=== PATIENT | male | born 2000 | race Caucasian/White ===

== ENCOUNTER 2022-06-28 23:57 | Emergency (ER) | payer OTHER, SELFPAY ==
[2022-06-28 23:58] VITALS: BP 141/88; PULSE 85; RESP 14; TEMP 36.2; O2SAT 98; BMI 20.3
[2022-06-29 00:02] VITALS: O2SAT 99
--- NOTE | 2022-06-29 00:22 | EX.ED.DYSGE1 ---
HPI History of Present Illness Chief Complaint: Cold Sx Detail of Chief Complaint: Cough x5 or 6 days Informant: patient Narrative Narrative: Patient presents emergency department for cough and cold symptoms that started 5 or 6 days ago. Patient states initially had a fever over last weekend but that has gone away. Patient continues to cough and bringing up some phlegm. Patient states he had COVID in the summer and then had a residual cough for which she got albuterol inhaler and steroids. Patient did take a COVID test when the symptoms for started 5 days ago and was negative. Patient has been away at school and has been around individuals with upper respiratory infections. Patient denies chest pain. PFSH PFSH Home Medications benzonatate 200 mg capsule 200 mg PO TID PRN cough #20 caps 06/29/22 [Rx Last Taken Unknown] prednisone 20 mg tablet 20 mg PO BID #10 tabs 06/29/22 [Rx Last Taken Unknown] Allergy/AdvReac Type Severity Reaction Status Date / Time ibuprofen [From Motrin] Allergy Swelling Verified 06/28/22 23:58 Social History Smoking Status: Never smoker ROS ROS ED Review of Systems ROS Unobtainable: other Constitutional Constitutional ED: Reports lethargy; Denies chills, fever(s), sweats or weight loss Eyes Eyes: Denies blurry vision, change in vision or diplopia ENT ENT ED: Denies rhinorrhea or sore throat Cardiovascular Cardiovascular: Denies chest pain, orthopnea or racing heartbeat Respiratory/Chest Respiratory/Chest: Reports cough, dyspnea and dyspnea on exertion; Denies orthopnea or sputum Gastrointestinal Gastrointestinal: Denies abdominal pain, diarrhea, nausea or vomiting Genitourinary Genitourinary ED: Denies dysuria, hematuria or urinary frequency Musculoskeletal Musculoskeletal: Denies arthralgias, back pain, myalgias or neck pain Integumentary Denies abscess, Abrasions or rash Neurologic Neurologic: Denies headache(s) or weakness Psychiatric Psychiatric: Denies anxiety, depression or suicidal thoughts Endocrine Endocrinology: Denies polydipsia, polyphagia or polyuria Hematologic/Lymphatic Hematologic/Lymphatic: Denies easy bleeding, easy bruising or lymphadenopathy Allergic/Immunologic Allergic/Immunologic ED: Denies mouth swelling, tongue swelling or urticaria EXAM Physical Exam Const Vital Signs: 06/28/22 23:58 06/29/22 00:02 06/29/22 00:33 Temperature 97.2 F L Temperature Source Temporal Pulse Rate 85 86 Respiratory Rate 14 16 Respiratory Effort Normal Non-Labored Respiratory Depth Normal Respiratory Pattern Normal Blood Pressure 141/88 H Blood Pressure Mean 105 Pulse Ox 98 Oxygen Delivery Method Room Air Room Air Positive well nourished and well developed General Appearance ED: well developed and NAD HEENT Reports TM's clear and moist mucous membranes normocephalic and atraumatic; Negative for trauma or tenderness Tympanic Membrane ED: Yes TM's clear Eyes PERRL and EOMs intact bilaterally General Eye ED: Negative for pale conjunctiva or scleral icterus Neck no lymphadenopathy, supple and no JVD General: Negative for tenderness Chest Wall inspection of chest normal and palpation of chest normal Chest: Negative for tenderness Resp normal respiratory effort and clear to auscultation bilaterally Effort and Inspection: Negative for respiratory distress or pain with movement Auscultation: Negative for rhonchi, wheezes or diminished lung sounds Cardio regular rate, regular rhythm, S1 normal heart sound, S2 normal heart sound and no murmurs Peripheral Pulses: pulses 2+ throughout GI normal to inspection, nondistended, normoactive bowel sounds, soft to palpation, non-tender, non-distended and no masses Back/Spine no CVA tenderness and no thoracic nor lumbar tenderness Extremity normal to inspection General Extremety ED: Negative for edema General Extremity: Negative for edema Neuro oriented x3, CN's II-XII intact bilaterally, no sensory deficits noted and gait normal Sensorium / Orientation: awake, alert, oriented to person, oriented to place and oriented to time Motor Exam: strength 5/5 throughout and strength abnormal Psych mental status grossly normal Skin no rashes or lesions noted and no wounds MDM MDM MDM Narrative Medical decision making narrative: Patient had a negative influenza screen and negative COVID rapid test. He was given a DuoNeb aerosol and it did seem to help his cough. Patient will be dispensed an albuterol MDI and will be started on prednisone and Tessalon Perles. Patient to follow-up with primary care physician in 3 to 5 days. Patient to return if increasing shortness of breath or condition should worsen anyway. Lab Data Attestation: I reviewed the patient's lab results. Radiography Diagnostic Testing: Clinical Impression(s) from Imaging Studies Chest X-Ray 06/29/22 00:29 IMPRESSION: No acute cardiopulmonary disease. Electronically Signed: Domingo Richard MD at 0:38 EST , 1 view chest x-ray obtained interpreted by myself as no acute disease process. Radiology in agreement. Discharge Plan Triage Chief Complaint: Cold Sx ED Provider: Larry Malin Dx/Rx/DC Orders Clinical Impression: Viral URI Instructions: ED URI, Viral, No Abx (Adult) Prescriptions: New benzonatate 200 mg capsule 200 mg PO TID PRN (Reason: cough) Qty: 20 0RF prednisone 20 mg tablet 20 mg PO BID Qty: 10 0RF Primary Care Provider: Care Physician,No Primary Referrals: Conner Strickland MD [Non-Staff] - 3-5 Days Disposition Disposition: Home, Self Care
--- NOTE | 2022-06-29 00:29 | RAD_ITS ---
INDICATION: cough EXAMINATION/TECHNIQUE: X-RAY - XR Chest 1 View COMPARISON: None. FINDINGS: LINES/DEVICES: None. LUNGS: No consolidation, edema or effusion. No pneumothorax. MEDIASTINUM AND CARDIOVASCULAR STRUCTURES: Cardiac silhouette not enlarged. Central airways and mediastinal contour are unremarkable. BONES AND SOFT TISSUES: Unremarkable. RAD/Chest 1 View IMPRESSION: No acute cardiopulmonary disease. Electronically Signed: Domingo Richard MD at 0:38 EST ,
[2022-06-29] MEDS: Ipratropium/Albuterol Sulfate 3 ML AMPUL.NEB INHALATION (00:31)
[2022-06-29 00:33] VITALS: PULSE 86; RESP 16
[2022-06-29 01:04] VITALS: PULSE 88; RESP 15; O2SAT 99
[2022-06-29] MEDS: Benzonatate 100 MG Capsule 200 MG PO (01:12)
[2022-06-29] MEDS: Albuterol Sulfate 8 gm Inhaler (60 puffs) 4 PUFF INHALATION (01:13)
== END 2022-06-29 01:15 | disposition home or self-care (01) ==
PROVIDERS: Emergency Provider Emergency Medicine; Visit Provider Emergency Medicine
DX: J06.9 Acute upper respiratory infection, unspecified (principal); Z20.822 Contact with and (suspected) exposure to COVID-19; Z86.16 Personal history of COVID-19
CPT/HCPCS: 71045; 87428; 94640; 99283